=== PATIENT | female | born 1995 | race American Indian/Alaskan Native ===

== ENCOUNTER 2021-03-10 17:29 | Emergency (ER) | payer SELFPAY ==
[2021-03-10 19:53] VITALS: BP 130/85
== END 2021-03-10 21:00 | disposition home or self-care (01) ==
LOC: ED 17:29
DX: N64.4 Mastodynia (principal); Z53.1 Procedure and treatment not carried out because of patient's decision for reasons of belief and group pressure

== ENCOUNTER 2021-03-18 15:08 | Emergency (ER) | payer SELFPAY ==
[2021-03-18 17:01] VITALS: BP 143/88
[2021-03-18] MEDS ORDERED: ONDANSETRON 4 MG/2 ML INJ IV ONE (20:21)
[2021-03-18] MEDS ORDERED: MORPHINE 2 MG/1 ML INJ IM ONE (20:21)
[2021-03-18] MEDS ORDERED: SODIUM CHLORIDE 0.9% 1000 ML 1,000 ML IV ONE (20:21)
--- NOTE | 2021-03-18 20:21 | Emergency Department Report ---
<DEVONTE LIRIANO - Last Filed: 03/18/21 22:17> ED General Adult HPI - General Chief complaint: Skin/Abscess/Foreign Body Stated complaint: PAINFUL LUMP UNDER RIGHT BREAST PUI?: No Time Seen by Provider: 03/18/21 20:03 Source: patient Mode of arrival: Ambulatory Limitations: No Limitations - History of Present Illness Initial comments: 26 year old female presents to ED with complaints of right breast pain, swelling and redness. Patient states that about 1.5mths ago she noticed that her nipple was mildly swollen but not tender. She states that she then noticed a small lump behind the nipple but again it was not painful but then last week the area started increasing in size and becoming more painful. She states she came to the ED last wednesday or wednesday for her symptoms and was started on antibiotics. She was prescribed dicloxacillin and toradol and tramadol. She states she started taking the antibiotics . She states she has been taking the antibiotics 4 times per day as prescribed. She states she had started noticing mild improvement in redness swelling but pain was getting worse. She reports that it feels like its getting worse. She denies any fever or chills. She states she is not currently breast feeding. She denies any recent breast piercings or procedures. She denies any hx of abscess or MRSA in past. She denies any sig past medical history. MD Complaint: Right breast swelling pain and redness -: week(s) (1) - Related Data Previous Rx's Medication Instructions Recorded Last Taken Type Dicloxacillin Sodium 500 mg PO QID #40 capsule 03/10/21 Unknown Rx Ketorolac [Toradol] 10 mg PO Q6H PRN #20 tablet 03/10/21 Unknown Rx Sulfamethoxazole/Trimethoprim 1 each PO BID #20 tablet 03/18/21 Unknown Rx [Bactrim DS TAB] oxyCODONE /ACETAMINOPHEN [Percocet 1 tab PO Q6HR PRN #12 tablet 03/18/21 Unknown Rx 5/325 mg] Allergies Allergy/AdvReac Type Severity Reaction Status Date / Time No Known Allergies Allergy Verified 02/07/14 23:50 ED Review of Systems Comment: All other systems reviewed and negative Constitutional: denies: chills, diaphoresis, fever, malaise, weakness ENT: denies: ear pain, throat pain, dental pain, hearing loss, epistaxis, congestion Respiratory: denies: cough, shortness of breath, wheezing Cardiovascular: denies: chest pain, palpitations, dyspnea on exertion, edema, syncope, paroxysmal nocturnal dyspnea Endocrine: no symptoms reported Gastrointestinal: denies: abdominal pain, nausea, diarrhea, constipation, hematemesis, hematochezia Genitourinary: denies: urgency, dysuria, frequency, hematuria, discharge, abnormal menses, dyspareunia Skin: other (right breast redness, pain and swelling). denies: rash, lesions, change in color, change in hair/nails, pruritus Neurological: denies: headache, weakness, numbness, paresthesias, confusion, abnormal gait, vertigo Psychiatric: denies: anxiety, depression, auditory hallucinations, visual hallucinations, homicidal thoughts, suicidal thoughts Hematological/Lymphatic: denies: easy bleeding, easy bruising, swollen glands ED Past Medical Hx - Past Medical History Previous Medical History?: Yes Hx Hypertension: No Hx Congestive Heart Failure: No Hx Diabetes: No Hx Deep Vein Thrombosis: No Hx Renal Disease: No Hx Sickle Cell Disease: No Hx Seizures: No Hx Asthma: Yes (Childhood) Hx COPD: No Hx HIV: No - Social History Smoking Status: Never Smoker Substance Use Type: None - Medications Home Medications: Home Medications Medication Instructions Recorded Confirmed Last Taken Type Dicloxacillin Sodium 500 mg PO QID #40 capsule 03/10/21 Unknown Rx Ketorolac [Toradol] 10 mg PO Q6H PRN #20 tablet 03/10/21 Unknown Rx Sulfamethoxazole/Trimethoprim 1 each PO BID #20 tablet 03/18/21 Unknown Rx [Bactrim DS TAB] oxyCODONE /ACETAMINOPHEN [Percocet 1 tab PO Q6HR PRN #12 tablet 03/18/21 Unknown Rx 5/325 mg] ED Physical Exam - General Limitations: No Limitations General appearance: alert, anxious, in distress (pt appears in pain ) - Head Head exam: Present: atraumatic, normocephalic, normal inspection - Eye Eye exam: Present: normal appearance, PERRL, EOMI Pupils: Present: normal accommodation - Neck Neck exam: Present: normal inspection, full ROM - Respiratory Respiratory exam: Present: normal lung sounds bilaterally. Absent: respiratory distress, wheezes, rales, rhonchi - Cardiovascular Cardiovascular Exam: Present: regular rate, normal rhythm, normal heart sounds - Neurological Exam Neurological exam: Present: alert, oriented X3, CN II-XII intact, normal gait - Psychiatric Psychiatric exam: Present: normal affect, normal mood - Skin Skin exam: Present: intact - Expanded Skin Exam Expanded 1 - ~10cm x 11cm indurated area noted center aspect of right breast with involvement of areolar and nipple with associated cellulitis but no apparent streaking. There is a small fluctuant area just above the nipple. No nipple discharge. Severe ttp. ED Medical Decision Making - Lab Data Result diagrams: 03/18/21 20:23 03/18/21 20:23 - Medical Decision Making 2158: Labs reviewed and unremarkable Breast US pending Pt currently resting comfortably and reports improvement of her pain after meds. She is not toxic or ill appearing. Discussed case with Dr Asher who also saw and evaluated patient, see his note for details. Exam concerning for mastitis/abscess and he recommends giving IV dose of clindamycin. Dr Asher consult with Dr Vigil, breast surgeon and she recommend adding bactrim and have patient follow up in office . Patient informed of plan for discharge and for her to start the bactrim while she continue the dicloxacillin and to follow up with Dr Vigil this . She will also be given something for pain. Patient expressed understanding of instructions and agreed with plan. Pt was stable at time of d/c ED Disposition Clinical Impression: Mastitis, Cellulitis of right breast Disposition: DC-01 TO HOME OR SELFCARE Is pt being admited?: No Does the pt Need Aspirin: No Condition: Stable Instructions: Mastitis, [id number], Skin Abscess, [id number] Additional Instructions: Continue taking the dicloxacillin as prescribed and start the bactrim as prescribed. Take the toradol and the percocet as prescribed. Do the warm compresses to breast as discussed. It is important that you Follow up with Dr Vgiil on . Return to ED if symptoms worsens or changes. Prescriptions: Sulfamethoxazole/Trimethoprim [Bactrim DS TAB] 1 each PO BID #20 tablet oxyCODONE /ACETAMINOPHEN [Percocet 5/325 mg] 1 tab PO Q6HR PRN #12 tablet PRN Reason: Pain Referrals: JEANNETTE CERVANTES MD [Staff Physician] - 3-5 Days EMILY STATON MD [Staff Physician] - 03/20/21 Forms: Work/School Release Form(ED) Time of Disposition: 22:12 <NAHED ASHER III - Last Filed: 03/18/21 23:42> ED Course - Reevaluation(s) Reevaluation #1: I reviewed the findings and management of this patient in real-time and I have personally seen and examined this patient and participated in the decision making for this patient with the midlevel. Patient is a 26-year-old female that presents emergency room with complaints of lower right breast pain. Patient states she was seen here approximately 5 to 6 days ago and was given antibiotics. Patient states the redness is improved but the pain has increased. Patient states she also came back to get a refill of her pain medication. Patient states she has not seen any specialist or primary care since being discharged from the ER. Patient states she is taking her antibiotics as prescribed. I examined the patient. Aletha to the midlevel was in the room the entire exam. Patient's lung sounds are clear. Patient's CV exam reveals normal S1-S2 and no murmurs. Breast exam shows a normal left breast and a tender and inflamed right breast. Patient's had labs which were essentially unremarkable. Patient is lactic acid is negative. Patient's WBC is normal. Patient has ultrasound pending. I will discussed the case with our breast surgeon on-call. 03/18/21 21:57 Reevaluation #2: I discussed all results and clinical findings with patient. I discussed plan of care with patient. Patient agrees with plan of care. Patient is stable for discharge. Patient will be discharged home. Patient given discharge instructions. Patient voiced understanding of discharge instructions. 03/18/21 23:43 - Consultations Consultation #1: I discussed case with Dr. Staton, breast surgeon. Dr. Staton states she can see the patient on . Dr. Staton recommends adding Bactrim to the antibiotic regimen. 03/18/21 22:10 ED Medical Decision Making - Lab Data Result diagrams: 03/18/21 20:23 03/18/21 20:23 - Radiology Data Radiology results: report reviewed EXAMINATION: Right Limited Breast Ultrasound, 03/18/2021 INDICATION: Right breast redness, pain and swelling. COMPARISON: None. FINDINGS: Targeted ultrasound evaluation was performed of the area of interest. Sonographic evaluation of the central retroareolar right breast in the patient's area of clinical concern demonstrates a hypoechoic mixed echogenic mass measuring 5.5 x 4.4 x 5.1 cm. This corresponds to the patient's area of clinical concern. There is some associated peripheral vascularity. Sonographic evaluation of the right axilla demonstrates several enlarged right axillary lymph nodes with a thickened cortex. IMPRESSION: Follow up recommendation: Surgical consult BI-RADS Category 4: Suspicious for Malignancy. Mixed echogenic right breast mass as described above with peripheral vascularity. It would be difficult to determine if this represents an abscess or right breast neoplasm. Please correlate with patient's clinical circumstances. Surgical consultation is also recommended. A normal or "negative" report should not preclude biopsy or follow-up of a clinically suspicious finding. - Differential Diagnosis Mastitis, cellulitis of the breast, breast pain, breast infection, ED Disposition Is pt being admited?: No Does the pt Need Aspirin: No <SAMIRA SELLERS - Last Filed: 03/18/21 23:55> ED Review of Systems ROS: Stated complaint: PAINFUL LUMP UNDER RIGHT BREAST Other details as noted in HPI ED Course Vital Signs 03/18/21 17:00 Temperature 98.7 F Pulse Rate 117 H Respiratory 18 Rate Blood Pressure 143/88 O2 Sat by Pulse 100 Oximetry ED Medical Decision Making - Lab Data Result diagrams: 03/18/21 20:23 03/18/21 20:23 - Radiology Data EXAMINATION: Right Limited Breast Ultrasound, 03/18/2021 INDICATION: Right breast redness, pain and swelling. COMPARISON: None. FINDINGS: Targeted ultrasound evaluation was performed of the area of interest. Sonographic evaluation of the central retroareolar right breast in the patient's area of clinical concern demonstrates a hypoechoic mixed echogenic mass measuring 5.5 x 4.4 x 5.1 cm. This corresponds to the patient's area of clinical concern. There is some associated peripheral vascularity. Sonographic evaluation of the right axilla demonstrates several enlarged right axillary lymph nodes with a thickened cortex. IMPRESSION: Follow up recommendation: Surgical consult BI-RADS Category 4: Suspicious for Malignancy. Mixed echogenic right breast mass as described above with peripheral vascularity. It would be difficult to determine if this represents an abscess or right breast neoplasm. Please correlate with patient's clinical circumstances. Surgical consultation is also recommended. A normal or "negative" report should not preclude biopsy or follow-up of a clinically suspicious finding. Signer Name: Prudence Garnica MD Signed: 03/18/2021 11:23 PM Workstation Name: [id number] Transcribed By: EB Dictated By: Prudence Garnica MD Electronically Authenticated By: Prudence Garnica MD Signed Date/Time: 03/18/212322 DD/ 17 TD/TT: Critical care attestation.: If time is entered above; I have spent that time in minutes in the direct care of this critically ill patient, excluding procedure time. ED Disposition Time of Disposition: 23:55
[2021-03-18] MEDS ORDERED: cefTRIAXone/NS 2 GM/100 ML 2 GM/100 ML BAG IV ONE (20:28)
[2021-03-18 21:06] LABS: Basophils % (Auto) 0.4 % (0.0-1.8); Eosinophils % (Auto) 0.4 % (0.0-4.3); Hematocrit 34.7 % (30.3-42.9); Hemoglobin 11.6 gm/dl (10.1-14.3); Lymphocytes # (Auto) 1.1 K/mm3 (1.2-5.4); Lymphocytes % (Auto) 11.6 % (13.4-35.0); Mean Corpuscular HGB Conc 34 % (30-34); Mean Corpuscular Volume 87 fl (79-97); Monocytes # (Auto) 0.9 K/mm3 (0.0-0.8); Monocytes % (Auto) 10.1 % (0.0-7.3); Platelet Count 326 K/mm3 (140-440); Red Cell Distribution Width 14.8 % (13.2-15.2)
[2021-03-18 21:13] LABS: Alanine Aminotransferase 11 units/L (7-56); Albumin 4.2 g/dL (3.9-5); Blood Urea Nitrogen 5 mg/dL (7-17); Calcium 9.5 mg/dL (8.4-10.2); Hemolysis Index 7
[2021-03-18 21:14] LABS: BUN/Creatinine Ratio 10
--- NOTE | 2021-03-18 23:28 | Ultrasound Report ---
EXAMINATION: Right Limited Breast Ultrasound, 03/18/2021 INDICATION: Right breast redness, pain and swelling. COMPARISON: None. FINDINGS: Targeted ultrasound evaluation was performed of the area of interest. Sonographic evaluati on of the central retroareolar right breast in the patient's area of clinical concern demonstrates a hypoechoic mixed echogenic mass measuring 5.5 x 4.4 x 5.1 cm. This corresponds to the patient's area of clinical concern. There is some associated peripheral vascularity. Sonographic evaluation of the right axilla demonstrates several enlarged right axillary lymph nodes w ith a thickened cortex. IMPRESSION: Follow up recommendation: Surgical consult BI-RADS Category 4: Suspicious for Malignancy. Mixed echogenic right breast mass as described above with peripheral vascularity. It would be difficult to determine if this represents an abscess or righ t breast neoplasm. Please correlate with patient's clinical circumstances. Surgical consultation is a lso recommended. A normal or "negative" report should not preclude biopsy or follow-up of a clinically suspicious find ing. Signer Name: Prudence Garnica MD Signed: 03/18/2021 11:23 PM Workstation Name: [id number]
== END 2021-03-18 23:45 | disposition home or self-care (01) ==
LOC: ED 15:08
DX: N61.0 Mastitis without abscess (principal); J45.909 Unspecified asthma, uncomplicated; Z79.899 Other long term (current) drug therapy
CPT/HCPCS: 36415; 76641; 80053; 82140; 85025; 87040; 96365; 96367; 96372; 96375; 99284; J0696; J2270; J2405; J7030